=== PATIENT | female | born 1960 | race Caucasian/White ===

== ENCOUNTER 2020-11-03 15:28 | Emergency (ER) | payer MEDICARE, MEDICAID ==
[~2020-11-03] VITALS: Ht 160 cm; Wt 69.9 kg
[~2020-11-03 15:28] MED LIST: CARB200T2 PO
--- NOTE | 2020-11-03 15:36 | NUR ---
inseam trimmer: urine cup given in triage
[2020-11-03 17:19] LABS: BASOPHILS % (AUTO) 1 % (0-1); EOSINOPHILS % (AUTO) 1 % (1-7); LYMPHOCYTES % (AUTO) 37 % (22-44); MEAN CORPUSCULAR HEMOGLOBIN 30.7 pg (27.0-34.8); MEAN CORPUSCULAR HGB CONC 34.2 g/dL (32.4-35.8); MEAN PLATELET VOLUME 9.6 fL (7.4-10.4); MONOCYTES % (AUTO) 6 % (2-9); NEUTROPHILS % (AUTO) 55 % (42-75); PLATELET COUNT 203 x10^3/uL (130-400); RED BLOOD COUNT 4.86 x10^6/uL (3.82-5.3); RED CELL DISTRIBUTION WIDTH 14.1 % (9.6-15.2)
[2020-11-03 17:30] LABS: ALBUMIN 3.8 g/dL (3.4-5.0); ANION GAP 8 mmol/L (5-15); CALCIUM 8.8 mg/dL (8.5-10.1); CHLORIDE 108 mmol/L (98-107); CREATININE 0.88 mg/dL (0.55-1.02)
--- NOTE | 2020-11-03 19:27 | NUR ---
PT TO ROOM FROM LOBBY
[2020-11-03 19:28] LABS: MICROSCOPIC NOT IND
--- NOTE | 2020-11-03 19:41 | NUR ---
PT TO CT
[2020-11-03] MEDS ORDERED: OXYcodone/APAP 5/325MG TABLET PO ONE (20:30)
[2020-11-03] MEDS ORDERED: OXYcodone/APAP 5/325MG TABLET ONE (20:31)
[2020-11-03 20:35] VITALS: BP 122/89
== END 2020-11-03 20:46 | disposition home or self-care (01) ==
LOC: ED 16:00
DX: N20.1 Calculus of ureter (principal); M54.5 Low back pain; R10.9 Unspecified abdominal pain; I10 Essential (primary) hypertension; F17.200 Nicotine dependence, unspecified, uncomplicated
CPT/HCPCS: 36415; 74176; 80048; 81003; 82040; 85025; 99284

== ENCOUNTER 2020-12-13 05:33 | Emergency (ER) | payer MEDICARE, MEDICAID ==
[~2020-12-13] VITALS: Ht 162.6 cm; Wt 73.8 kg
[2020-12-13] MEDS ORDERED: KETOROLAC 30 MG/1 ML IM ONE (07:00)
--- NOTE | 2020-12-13 07:01 | NUR ---
report given to joyce thomas
[2020-12-13 07:13] LABS: BASOPHILS % (AUTO) 1 % (0-1); EOSINOPHILS % (AUTO) 3 % (1-7); LYMPHOCYTES % (AUTO) 44 % (22-44); MEAN CORPUSCULAR HEMOGLOBIN 30.8 pg (27.0-34.8); MEAN PLATELET VOLUME 9.1 fL (7.4-10.4); MONOCYTES % (AUTO) 6 % (2-9); NEUTROPHILS % (AUTO) 46 % (42-75); PLATELET COUNT 176 x10^3/uL (130-400); RED BLOOD COUNT 4.31 x10^6/uL (3.82-5.3); RED CELL DISTRIBUTION WIDTH 14.6 % (9.6-15.2)
[2020-12-13 07:26] LABS: ALBUMIN 3.3 g/dL (3.4-5.0); CALCIUM 8.7 mg/dL (8.5-10.1)
[2020-12-13 07:30] LABS: ALANINE AMINOTRANSFERASE 21 U/L (12-78); ALKALINE PHOSPHATASE 77 U/L (45-117); BILIRUBIN,TOTAL 0.3 mg/dL (0.2-1.0); CREATININE 0.88 mg/dL (0.55-1.02); TOTAL PROTEIN 6.6 g/dL (6.4-8.2)
[2020-12-13] MEDS ORDERED: KETOROLAC 60 MG/2 ML ONE (07:37)
--- NOTE | 2020-12-13 07:43 | NUR ---
PT REFUSED TORADOL IM, STATING "I DON'T LIKE NEEDLES. I TOLD HER THAT ALREADY." Addendum: 12/13/20 at 0757 by JENNIFER MD AWARE OF PT REFUSAL OF MEDICATION.
--- NOTE | 2020-12-13 07:45 | NUR ---
report taken from RUTH Del Angel. pt refusing toradol admin. pt a&o, resps even and unlabored, no complaint at this time. awaiting labs and dispo.
[2020-12-13 07:57] LABS: ANION GAP 2 mmol/L (5-15); CHLORIDE 113 mmol/L (98-107)
[2020-12-13 08:29] VITALS: BP 137/58
--- NOTE | 2020-12-13 08:37 | NUR ---
report from martha cook. as
--- NOTE | 2020-12-13 08:40 | NUR ---
REPORT GIVEN AT BEDSIDE TO RUTH SUTTON.
== END 2020-12-13 09:56 | disposition home or self-care (01) ==
LOC: ED 06:58
DX: R20.2 Paresthesia of skin (principal); I10 Essential (primary) hypertension; F17.200 Nicotine dependence, unspecified, uncomplicated
CPT/HCPCS: 36415; 80053; 83605; 85025; 99283